=== PATIENT | male | born 1955 | race Caucasian/White ===

== ENCOUNTER 2018-02-16 21:18 | Inpatient (IN) ==
[2018-02-16] MEDS ORDERED: Midazolam Inj 5 MG/ML 1 ML Vial ONE ×3 (21:27→22:18)
[2018-02-16] MEDS ORDERED: ceFAZolin 2 GM Premix Inj 2 GM/50 ML PIGGYBACK IV.SIG ONE (21:35)
[2018-02-16] MEDS ORDERED: Diphtheria/Tetanus/Pertussis Vaccine Inj 0.5 ML Syringe IM ONE (21:35)
--- NOTE | 2018-02-16 21:37 | ED ---
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 Care Provider: UNKNOWN, Attending Provider: Jer Holder Interventions Interventions: ED Discharge Assessment Last Done: 02/17/18 01:01 Status ED Status: Left Department Discharge Information Discharge Date/Time: 02/17/18 00:50
[2018-02-16 21:42] LABS: Baso % (Auto) 0.1 % (0.0-2.0); Hematocrit 52.5 % (39.0-51.0); Hemoglobin 17.7 gm/dL (13.0-17.0); Lymph # (Auto) 0.7 th/mm3 (1.0-4.8); Lymph % (Auto) 3.9 % (9.0-44.0); Mean Corpuscular HGB Conc 33.7 % (32.0-36.0); Mean Corpuscular Hemoglobin 31.6 pg (27.0-34.0); Mean Corpuscular Volume 93.7 fL (80.0-100.0); Mean Platelet Volume 8.4 fL (7.0-11.0); Mono # (Auto) 1.2 th/mm3 (0.0-0.9); Mono % (Auto) 6.4 % (0.0-8.0); Neut # (Auto) 16.5 th/mm3 (1.8-7.7); Neut % (Auto) 89.6 % (16.0-70.0); Platelet Count 251 th/mm3 (150-450); Red Cell Distribution Width 13.7 % (11.6-17.2); White Blood Count 18.4 th/mm3 (4.0-11.0)
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
[2018-02-16] MEDS ORDERED: Sod Chloride 0.9% Inj 1,000 ML IV.CONT SCH ×2 (21:45→22:30)
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
[2018-02-16 22:01] LABS: Activated Partial Thrombo Time 24.7 sec (24.3-30.1); INR 1.1 Ratio; Prothrombin Time 10.7 sec (9.8-11.6)
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
[2018-02-16] MEDS ORDERED: Post-op Orders (for Pharmacy) OTHER ONE (22:18)
[2018-02-16] MEDS ORDERED: Naloxone Inj 0.4 MG/ML Vial IV.PUSH PRN (22:18)
[2018-02-16] MEDS ORDERED: Bisacodyl 10 MG Supp RECTAL PRN (22:18)
[2018-02-16] MEDS ORDERED: Ketamine Inj 200 MG/20 ML Vial IV.PUSH ONE (22:24)
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
[2018-02-16] MEDS ORDERED: Ketamine Inj 500 MG/10 ML Vial IV.PUSH ONE (22:45)
[2018-02-16] MEDS ORDERED: levETIRAcetam 500mg/100mL Inj 100 ML IV.SIG SCH (23:00)
[2018-02-16 23:42] LABS: Albumin 4.7 g/dL (3.4-5.0); Anion Gap 27 meq/L (5-15); Aspartate Aminotransferase 70 U/L (15-37); Blood Urea Nitrogen 13 mg/dL (7-18); Calcium 9.6 mg/dL (8.5-10.1); Chloride 97 meq/L (98-107); Glomerular Filtration Rate 29 mL/min (>89); Glucose,Random 130 mg/dL (74-106); Potassium 4.1 meq/L (3.5-5.1); Sodium 135 meq/L (136-145)
[2018-02-16 23:45] LABS: Alanine Aminotransferase 78 U/L (12-78); Alkaline Phosphatase 98 U/L (45-117); Creatine Kinase 412 U/L (39-308); Total Protein 8.3 g/dL (6.4-8.2); Troponin I 0.05 ng/mL (0.02-0.05)
[2018-02-16 23:51] LABS: Bilirubin,Urine Negative (Negative); Clarity,Urine Clear (Clear); Color,Urine Yellow (Yellw/Straw); Glucose,Urine (UA) Negative (Negative); Leukocyte Esterase,Urine Negative (Negative); Mucus,Urine Few /lpf (Occasional); Nitrite,Urine Negative (Negative); Specific Gravity,Urine 1.054 (1.002-1.035); Squamous Epithelial Cell,Urine <1 /hpf (0-5)
[2018-02-16] MEDS ORDERED: Sod Chloride 0.9% Inj 1,000 ML IV.SIG ONE (23:52)
[2018-02-16] MEDS ORDERED: Vancomycin Inj 1 GM/200 ML PIGGYBACK IV.SIG ONE (23:52)
[2018-02-16] MEDS ORDERED: Piperacil/Tazo 3.375 GM Premix 50 ML IV.SIG ONE (23:52)
[2018-02-16 23:54] LABS: Amphetamine Screen,Urine Neg (Neg); Barbiturate Screen,Urine Neg (Neg); Cannabinoid Screen,Urine Pos (Neg); Cocaine Screen,Urine Neg (Neg)
[2018-02-16 23:59] LABS: CKMB Percent 0.8 % (0.0-4.0); Creatine Kinase MB 3.1 ng/mL (0.5-3.6)
[2018-02-17 00:01] LABS: Opiate Screen,Urine Neg (Neg)
[2018-02-17] MEDS ORDERED: Morphine Inj 4 MG/ML Vial IV.PUSH PRN (00:35)
[2018-02-17] MEDS ORDERED: Acetaminophen 325 MG Tablet PO PRN (00:35)
[2018-02-17] MEDS ORDERED: Bisacodyl 10 MG Supp RECTAL PRN (00:35)
[2018-02-17] MEDS: Heparin - SQ 10,000 UNITS/ML Vial SQ SCH ×3 (02:06→18:30)
[2018-02-17] MEDS: Sod Chloride 0.9% Inj 1,000 ML IV.CONT SCH ×3 (02:07→18:31)
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
[2018-02-17] MEDS ORDERED: Chlorhexidine Gluconate 2% 1 Pack (2 Cloths) TOPICAL PRN (04:00)
[2018-02-17] MEDS: Chlorhexidine Gluconate 2% 1 Pack (2 Cloths) TOPICAL SCH (05:42)
[2018-02-17] MEDS ORDERED: Senna/Docusate Sodium 8.6/50 MG Tablet PO SCH (09:00)
[2018-02-17] MEDS ORDERED: Famotidine PF Inj 20 MG/2 ML Vial IV.PUSH SCH ×2 (09:00)
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
--- NOTE | 2018-02-17 16:55 | P.PNVS ---
Subjective Subjective/Hospital Course: 63-year-old male known to the hospital from previous encounters. Patient has chronic seizures and is noncompliant with his medications Patient was initially evaluated this priority 1 trauma alert but except for abrasions and contusion of the had no other issues were detected and it was deemed to be appropriate to have patient be admitted to medicine. Grateful for care by Dr. Medina's team Nothing to add to care will sign off at this time and if any further surgical issues arise please let us know Objective Vital Signs / I&O: Vital Signs 02/16/18 23:03 02/17/18 00:28 02/17/18 01:00 Temperature 98.8 F Pulse Rate 117 H 107 H 100 H Respiratory Rate 28 H 18 29 H Blood Pressure 147/68 H 155/64 H 94/69 L Pulse Oximetry 100 02/17/18 02:00 02/17/18 03:00 02/17/18 04:00 Temperature 98.8 F 98.8 F 98.7 F Pulse Rate 94 H 89 86 Respiratory Rate 23 21 22 Blood Pressure 119/69 109/74 111/58 L Pulse Oximetry 02/17/18 08:00 02/17/18 09:00 02/17/18 12:00 Temperature 98.2 F 97.7 F Pulse Rate 76 78 72 Respiratory Rate 21 21 Blood Pressure 126/68 112/61 Pulse Oximetry 97 96 02/17/18 16:00 02/17/18 16:13 Temperature 98.5 F Pulse Rate 78 Respiratory Rate 24 Blood Pressure 100/59 L Pulse Oximetry 96 97 Intake & Output 02/16/18 02/17/18 02/17/18 18:59 06:59 18:59 Output Total 750 / 750 Balance -750 / -750 Weight 81.9 kg 81.9 kg Output: Urine 750 / 750 Other: Date of Last Bowel Movement 02/16/18 02/16/18 # Bowel Movements 0 Weight On Admission 75 kg Laboratory Results - last 24 hr 02/16/18 02/16/18 02/16/18 21:20 21:20 21:20 WBC 18.4 H RBC 5.60 Hgb 17.7 H POC Hgb (Calc) 17.7 H Hct 52.5 H POC Hct 52.0 H MCV 93.7 MCH 31.6 MCHC 33.7 RDW 13.7 Plt Count 251 MPV 8.4 Neut % (Auto) 89.6 H Lymph % (Auto) 3.9 L [place] % (Auto) 6.4 Eos % (Auto) 0.0 Baso % (Auto) 0.1 Neut # (Auto) 16.5 H Lymph # (Auto) 0.7 L [place] # (Auto) 1.2 H Eos # (Auto) 0.0 Baso # (Auto) 0.0 WBC Differential . Differential Comment Auto diff final PT 10.7 INR 1.1 APTT 24.7 Fibrinogen POC Sodium 132 L Sodium POC Potassium 4.1 Potassium POC Chloride 97 L Chloride Carbon Dioxide Anion Gap POC BUN 12 BUN Creatinine POC Creatinine 1.4 H Estimated GFR POC Glucose 133 H Random Glucose Lactic Acid Calcium Total Bilirubin AST ALT Alkaline Phosphatase Total Creatine Kinase CK-MB (CK-2) CK-MB (CK-2) % Troponin I B-Natriuretic Peptide Total Protein Albumin Urine Color Urine Clarity Urine pH Ur Specific [place] Urine Protein Urine Glucose (UA) Urine Ketones Urine Occult Blood Urine Nitrate Urine Bilirubin Urine Urobilinogen Ur Leukocyte Esterase Urine RBC Urine WBC Ur Squamous Epith Cells Urine Mucus Micro UA Comment Urine Culture Comments Nasal Screen MRSA (PCR) Urine Opiates Screen Ur Barbiturates Screen Ur Amphetamines Screen U Benzodiazepines Scrn Urine Cocaine Screen U Cannabinoids Screen Serum Alcohol Blood Type Blood Type Recheck Antibody Screen MTS Gel Crossmatch 02/16/18 02/16/18 02/16/18 21:20 21:20 21:20 WBC RBC Hgb POC Hgb (Calc) Hct POC Hct MCV MCH MCHC RDW Plt Count MPV Neut % (Auto) Lymph % (Auto) [place] % (Auto) Eos % (Auto) Baso % (Auto) Neut # (Auto) Lymph # (Auto) [place] # (Auto) Eos # (Auto) Baso # (Auto) WBC Differential Differential Comment PT INR APTT Fibrinogen 261 POC Sodium Sodium POC Potassium Potassium POC Chloride Chloride Carbon Dioxide Anion Gap POC BUN BUN Creatinine POC Creatinine Estimated GFR POC Glucose Random Glucose Lactic Acid Calcium Total Bilirubin AST ALT Alkaline Phosphatase Total Creatine Kinase CK-MB (CK-2) CK-MB (CK-2) % Troponin I B-Natriuretic Peptide Total Protein Albumin Urine Color Urine Clarity Urine pH Ur Specific [place] Urine Protein Urine Glucose (UA) Urine Ketones Urine Occult Blood Urine Nitrate Urine Bilirubin Urine Urobilinogen Ur Leukocyte Esterase Urine RBC Urine WBC Ur Squamous Epith Cells Urine Mucus Micro UA Comment Urine Culture Comments Nasal Screen MRSA (PCR) Urine Opiates Screen Ur Barbiturates Screen Ur Amphetamines Screen U Benzodiazepines Scrn Urine Cocaine Screen U Cannabinoids Screen Serum Alcohol Less than 3 Blood Type O Negative Blood Type Recheck Not needed Antibody Screen Negative MTS Gel Crossmatch 02/16/18 02/16/18 02/16/18 21:20 21:20 21:20 WBC RBC Hgb POC Hgb (Calc) Hct POC Hct MCV MCH MCHC RDW Plt Count MPV Neut % (Auto) Lymph % (Auto) [place] % (Auto) Eos % (Auto) Baso % (Auto) Neut # (Auto) Lymph # (Auto) [place] # (Auto) Eos # (Auto) Baso # (Auto) WBC Differential Differential Comment PT INR APTT Fibrinogen POC Sodium Sodium 135 L POC Potassium Potassium 4.1 POC Chloride Chloride 97 L Carbon Dioxide 11.0 L Anion Gap 27 H POC BUN BUN 13 Creatinine 2.00 H POC Creatinine Estimated GFR 29 L POC Glucose Random Glucose 130 H Lactic Acid Calcium 9.6 Total Bilirubin 3.0 H AST 70 H ALT 78 Alkaline Phosphatase 98 Total Creatine Kinase 412 H CK-MB (CK-2) 3.1 CK-MB (CK-2) % 0.8 Troponin I 0.05 B-Natriuretic Peptide 41 Total Protein 8.3 H Albumin 4.7 Urine Color Urine Clarity Urine pH Ur Specific [place] Urine Protein Urine Glucose (UA) Urine Ketones Urine Occult Blood Urine Nitrate Urine Bilirubin Urine Urobilinogen Ur Leukocyte Esterase Urine RBC Urine WBC Ur Squamous Epith Cells Urine Mucus Micro UA Comment Urine Culture Comments Nasal Screen MRSA (PCR) Urine Opiates Screen Ur Barbiturates Screen Ur Amphetamines Screen U Benzodiazepines Scrn Urine Cocaine Screen U Cannabinoids Screen Serum Alcohol Blood Type Blood Type Recheck Antibody Screen MTS Gel Crossmatch See Detail 02/16/18 02/16/18 02/16/18 23:00 23:00 23:30 WBC RBC Hgb POC Hgb (Calc) Hct POC Hct MCV MCH MCHC RDW Plt Count MPV Neut % (Auto) Lymph % (Auto) [place] % (Auto) Eos % (Auto) Baso % (Auto) Neut # (Auto) Lymph # (Auto) [place] # (Auto) Eos # (Auto) Baso # (Auto) WBC Differential Differential Comment PT INR APTT Fibrinogen POC Sodium Sodium POC Potassium Potassium POC Chloride Chloride Carbon Dioxide Anion Gap POC BUN BUN Creatinine POC Creatinine Estimated GFR POC Glucose Random Glucose Lactic Acid Calcium Total Bilirubin AST ALT Alkaline Phosphatase Total Creatine Kinase CK-MB (CK-2) CK-MB (CK-2) % Troponin I 0.12 H B-Natriuretic Peptide Total Protein Albumin Urine Color Yellow Urine Clarity Clear Urine pH 5.0 Ur Specific [place] 1.054 H Urine Protein Negative Urine Glucose (UA) Negative Urine Ketones 20 Urine Occult Blood Large H Urine Nitrate Negative Urine Bilirubin Negative Urine Urobilinogen 2.0 H Ur Leukocyte Esterase Negative Urine RBC 157 H Urine WBC 3 Ur Squamous Epith Cells <1 Urine Mucus Few H Micro UA Comment Cath-culture not ind Urine Culture Comments Cath-cult not ind Nasal Screen MRSA (PCR) Urine Opiates Screen Neg Ur Barbiturates Screen Neg Ur Amphetamines Screen Neg U Benzodiazepines Scrn Pos H Urine Cocaine Screen Neg U Cannabinoids Screen Pos H Serum Alcohol Blood Type Blood Type Recheck Antibody Screen MTS Gel Crossmatch 02/17/18 02/17/18 02/17/18 00:15 03:30 06:30 WBC RBC Hgb POC Hgb (Calc) Hct POC Hct MCV MCH MCHC RDW Plt Count MPV Neut % (Auto) Lymph % (Auto) [place] % (Auto) Eos % (Auto) Baso % (Auto) Neut # (Auto) Lymph # (Auto) [place] # (Auto) Eos # (Auto) Baso # (Auto) WBC Differential Differential Comment PT INR APTT Fibrinogen POC Sodium Sodium POC Potassium Potassium POC Chloride Chloride Carbon Dioxide Anion Gap POC BUN BUN Creatinine POC Creatinine Estimated GFR POC Glucose Random Glucose Lactic Acid 2.0 Calcium Total Bilirubin AST ALT Alkaline Phosphatase Total Creatine Kinase CK-MB (CK-2) CK-MB (CK-2) % Troponin I 0.14 H B-Natriuretic Peptide Total Protein Albumin Urine Color Urine Clarity Urine pH Ur Specific [place] Urine Protein Urine Glucose (UA) Urine Ketones Urine Occult Blood Urine Nitrate Urine Bilirubin Urine Urobilinogen Ur Leukocyte Esterase Urine RBC Urine WBC Ur Squamous Epith Cells Urine Mucus Micro UA Comment Urine Culture Comments Nasal Screen MRSA (PCR) Not detected Urine Opiates Screen Ur Barbiturates Screen Ur Amphetamines Screen U Benzodiazepines Scrn Urine Cocaine Screen U Cannabinoids Screen Serum Alcohol Blood Type Blood Type Recheck Antibody Screen MTS Gel Crossmatch 02/17/18 02/17/18 02/17/18 07:28 11:37 13:33 WBC RBC Hgb POC Hgb (Calc) Hct POC Hct MCV MCH MCHC RDW Plt Count MPV Neut % (Auto) Lymph % (Auto) [place] % (Auto) Eos % (Auto) Baso % (Auto) Neut # (Auto) Lymph # (Auto) [place] # (Auto) Eos # (Auto) Baso # (Auto) WBC Differential Differential Comment PT INR APTT Fibrinogen POC Sodium Sodium POC Potassium Potassium POC Chloride Chloride Carbon Dioxide Anion Gap POC BUN BUN Creatinine POC Creatinine Estimated GFR POC Glucose 92 86 Random Glucose Lactic Acid Calcium Total Bilirubin AST ALT Alkaline Phosphatase Total Creatine Kinase CK-MB (CK-2) CK-MB (CK-2) % Troponin I 0.11 H B-Natriuretic Peptide Total Protein Albumin Urine Color Urine Clarity Urine pH Ur Specific [place] Urine Protein Urine Glucose (UA) Urine Ketones Urine Occult Blood Urine Nitrate Urine Bilirubin Urine Urobilinogen Ur Leukocyte Esterase Urine RBC Urine WBC Ur Squamous Epith Cells Urine Mucus Micro UA Comment Urine Culture Comments Nasal Screen MRSA (PCR) Urine Opiates Screen Ur Barbiturates Screen Ur Amphetamines Screen U Benzodiazepines Scrn Urine Cocaine Screen U Cannabinoids Screen Serum Alcohol Blood Type Blood Type Recheck Antibody Screen MTS Gel Crossmatch Impressions Chest X-Ray 02/16/18 21:20 CONCLUSION: Questionable mild widening of the superior mediastinum. The patient is scheduled for CT examination the chest. Asymmetric appearance of the medial aspects of the clavicles. The patient is rotated. This area will also be further evaluated on the CT examination. Pelvis X-Ray 02/16/18 21:20 CONCLUSION: No fracture is seen. Abdomen/Pelvis CT 02/16/18 21:22 CONCLUSION: 1. No definite acute abnormality is seen. There is motion blurring seen throughout the study. 2. Diffuse bladder wall thickening. The bladder is only minimally distended. The bladder wall thickening is likely secondary to the lack of distention. The prostate is enlarged suggesting the patient may have bladder outlet obstruction issues which can lead to hypertrophy of the urinary bladder. An underlying bladder abnormality cannot be excluded. Cervical Spine CT 02/16/18 21:22 CONCLUSION: 1. No acute bony abnormalities seen. 2. Chronic change as described above. Chest CT 02/16/18 21:22 CONCLUSION: No definite acute abnormality seen. There is motion blurring seen throughout the study limiting evaluation of the finer details. Face CT 02/16/18 21:22 CONCLUSION: 1. Fracture at the inferior anterior aspect of the right nasal bone. There is no soft tissue swelling suggests this may be chronic. 2. Minimal right ethmoid sinus disease. 3. Motion blurring especially of the lower aspect of the face. Head CT 02/16/18 21:22 CONCLUSION: 1. No acute intracranial abnormality is seen. 2. Atrophy. .
[2018-02-17] MEDS: levETIRAcetam 1000mg/100mL Inj 100 ML IV.SIG SCH ×2 (18:30→22:19)
[2018-02-17] MEDS: Senna/Docusate Sodium 8.6/50 MG Tablet PO SCH ×2 (18:31→22:20)
--- NOTE | 2018-02-17 18:45 | ECG ---
Date Performed: 02/16/2018 Time Performed: 23:08:38 PTAGE: 89 years EKG: SINUS TACHYCARDIA BORDERLINE RIGHT AXIS DEVIATION POSSIBLE INFERIOR MYOCARDIAL INFARCTION A BNORMAL RHYTHM ECG NO PREVIOUS TRACING DOCTOR: Tarah Beltrán Interpretating Date/Time 02/17/2018 18:44:04
[2018-02-17] MEDS: Famotidine PF Inj 20 MG/2 ML Vial IV.PUSH SCH (22:19)
[2018-02-18] MEDS: Heparin - SQ 10,000 UNITS/ML Vial SQ SCH ×2 (02:17→08:18)
[2018-02-18] MEDS: Sod Chloride 0.9% Inj 1,000 ML IV.CONT SCH ×2 (02:18→11:10)
[2018-02-18 04:09] LABS: Baso % (Auto) 0.6 % (0.0-2.0); Eos % (Auto) 0.5 % (0.0-4.0); Hematocrit 36.6 % (39.0-51.0); Hemoglobin 12.8 gm/dL (13.0-17.0); Lymph # (Auto) 1.1 th/mm3 (1.0-4.8); Mean Corpuscular HGB Conc 35.1 % (32.0-36.0); Mean Corpuscular Volume 91.3 fL (80.0-100.0); Mean Platelet Volume 7.8 fL (7.0-11.0); Mono # (Auto) 0.5 th/mm3 (0.0-0.9); Mono % (Auto) 8.8 % (0.0-8.0); Neut % (Auto) 71.1 % (16.0-70.0); Platelet Count 118 th/mm3 (150-450); Red Blood Count 4.01 mil/mm3 (4.50-5.90); Red Cell Distribution Width 13.3 % (11.6-17.2); White Blood Count 5.7 th/mm3 (4.0-11.0)
[2018-02-18 04:18] LABS: Activated Partial Thrombo Time 27.8 sec (24.3-30.1); Prothrombin Time 10.6 sec (9.8-11.6)
[2018-02-18 04:38] LABS: Alanine Aminotransferase 47 U/L (12-78); Albumin 3.1 g/dL (3.4-5.0); Anion Gap 6 meq/L (5-15); Aspartate Aminotransferase 68 U/L (15-37); Blood Urea Nitrogen 13 mg/dL (7-18); Carbon Dioxide 26.7 meq/L (21.0-32.0); Chloride 108 meq/L (98-107); Cholesterol 123 mg/dL (120-200); Glomerular Filtration Rate 72 mL/min (>89); Glucose,Random 80 mg/dL (74-106); Magnesium 1.9 mg/dL (1.5-2.5); Phosphorus 1.8 mg/dL (2.5-4.9); Potassium 3.8 meq/L (3.5-5.1); Sodium 141 meq/L (136-145); Triglycerides 161 mg/dL (42-150)
[2018-02-18 04:48] LABS: Alkaline Phosphatase 60 U/L (45-117); Chol/HDL Ratio 3.95 Ratio; Free T4 (Free Thyroxine) 1.02 ng/dL (0.76-1.46); HDL Cholesterol 31.1 mg/dL (40.0-60.0); LDL Cholesterol,Calculated 60 mg/dL (0-99); Total Protein 5.5 g/dL (6.4-8.2)
[2018-02-18] MEDS: Chlorhexidine Gluconate 2% 1 Pack (2 Cloths) TOPICAL SCH (07:50)
[2018-02-18] MEDS: Senna/Docusate Sodium 8.6/50 MG Tablet PO SCH (08:16)
[2018-02-18] MEDS: Famotidine PF Inj 20 MG/2 ML Vial IV.PUSH SCH (08:17)
[2018-02-18] MEDS: levETIRAcetam 1000mg/100mL Inj 100 ML IV.SIG SCH (08:17)
[2018-02-18] MEDS ORDERED: Venlafaxine XR 75 MG Capsule PO SCH (09:00)
[2018-02-18] MEDS ORDERED: Potassium Phosphate 500 MG Soluble Tablet PO ONE (09:00)
[2018-02-18] MEDS ORDERED: Allopurinol 100 MG Tablet PO SCH (09:00)
[2018-02-18 09:39] LABS: Hemoglobin A1c 4.9 % (4.3-6.0)
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
[2018-02-18 12:06] VITALS: BP 147/88; PULSE 88; RESP 14; TEMP 98.4; O2SAT 98
[2018-02-18] MEDS ORDERED: levETIRAcetam 500 MG Tablet PO SCH (21:00)
== END 2018-02-18 12:53 | disposition home or self-care (01) ==
LOC: NEPI 21:18 → NEDA 23:57 → EDBD 23:57 → N03 02-17 00:50 → N05 02-17 19:09
PROVIDERS: ADMIT Hospitalist; ATTEND Hospitalist